=== PATIENT | female | born 1980 | race Caucasian/White ===

== ENCOUNTER 2017-04-08 21:57 | Emergency (ER) | payer OTHER ==
[~2017-04-08] VITALS: Ht 172.7 cm; Wt 70.2 kg
[~2017-04-08 21:57] MED LIST: LEVA500T33 PO; METR-1 PO; OMEP20TA PO
[2017-04-08 22:07] VITALS: BP 117/79; PULSE 58; RESP 16; TEMP 98.1; O2SAT 99
== END 2017-04-08 22:47 | disposition left against medical advice (07) ==
LOC: PHED 21:57
DX: R10.31 Right lower quadrant pain (principal)
CPT/HCPCS: 99281